=== PATIENT | female | born 1990 | race Caucasian/White ===

== ENCOUNTER 2020-09-06 14:53 | Outpatient (CLI) | payer OTHER | END 2020-09-06 17:38 | disposition home or self-care (01) | LOC: GENOP 14:53 | PROVIDERS: Obstetrics & Gynecology | DX: O42.92 Full-term premature rupture of membranes, unspecified as to length of time between rupture and onset of labor (principal) | CPT/HCPCS: 80307; 81001; 83518; 96372; G0463; J0696 ==

== ENCOUNTER 2020-09-10 21:19 | Inpatient (IN) | payer OTHER ==
[2020-09-10 22:10] LABS: HEMOGLOBIN 12.6 gm/dl (12.3-15.3); RED BLOOD COUNT 3.94 M/UL (4.00-5.10); WHITE BLOOD COUNT 16.6 K/UL (4.5-11.0)
[2020-09-12 06:44] LABS: WHITE BLOOD COUNT 15.1 K/UL (4.5-11.0)
[2020-09-12 06:51] LABS: HEMOGLOBIN 9.5 gm/dl (12.3-15.3); RED BLOOD COUNT 2.94 M/UL (4.00-5.10)
[2020-09-12] MEDS ORDERED: IBUPROFEN600 MG PO (15:38)
[2020-09-12] MEDS ORDERED: DOCUSATE SODIU100 MG PO (15:38)
[2020-09-12] MEDS ORDERED: BUPRENORPHINE HC8 MG SL (15:38)
== END 2020-09-12 18:08 | disposition home or self-care (01) | DRG 787 ==
LOC: GENOP 21:19 → OB 22:30
PROVIDERS: Obstetrics & Gynecology; ADMIT Obstetrics & Gynecology
PROC: 10D00Z1 Extraction of Products of Conception, Low, Open Approach (ICD-10-PCS; principal; 2020-09-10 23:20)
PROC: 3E02340 Introduction of Influenza Vaccine into Muscle, Percutaneous Approach (ICD-10-PCS; 2020-09-12)
PROC: 3E0234Z Introduction of Serum, Toxoid and Vaccine into Muscle, Percutaneous Approach (ICD-10-PCS; 2020-09-12)
DX: O32.8XX0 Maternal care for other malpresentation of fetus, not applicable or unspecified (principal); O99.324 Drug use complicating childbirth; F11.20 Opioid dependence, uncomplicated; Z20.828 Contact with and (suspected) exposure to other viral communicable diseases; O98.42 Viral hepatitis complicating childbirth; Z3A.38 38 weeks gestation of pregnancy; Z37.0 Single live birth; B19.20 Unspecified viral hepatitis C without hepatic coma; O72.3 Postpartum coagulation defects; D69.6 Thrombocytopenia, unspecified; O99.334 Smoking (tobacco) complicating childbirth; F17.210 Nicotine dependence, cigarettes, uncomplicated; Z88.1 Allergy status to other antibiotic agents; Z83.3 Family history of diabetes mellitus; Z82.49 Family history of ischemic heart disease and other diseases of the circulatory system; Z80.1 Family history of malignant neoplasm of trachea, bronchus and lung; Z23 Encounter for immunization
CPT/HCPCS: 36415; 80307; 81001; 82800; 85025; 87635; 90686; 90715; C9113; G0008; J0690; J1170; J2001; J2210; J2250; J2405; J2590; J2704; J3010; J7120